=== PATIENT | male | born 1975 | race Caucasian/White ===

== ENCOUNTER 2022-07-25 14:02 | Emergency (ER) | payer OTHER, SELFPAY ==
--- NOTE | 2022-07-25 14:15 | ED.WOUNDLAC ---
HPI - Wound/Laceration General Chief Complaint: Wound/Laceration Stated Complaint: Laceration to right hand Time Seen by Provider: 07/25/22 14:15 Source: patient Mode of arrival: ambulatory Limitations: no limitations History of Present Illness HPI narrative: 47 y/o male presented for c/o laceration to right palm near pinky, after injury today. States he was washing dishes when a plate exploded, cutting the hand. He denies decreased ROM, numbness, tingling or weakness of the finger/hand. Tetanus is up to date. He applied pressure and came in for evaluation immediately. Related Data Home Medications Medication Instructions Recorded Confirmed paroxetine HCl 25 mg 25 mg PO DAILY 07/25/22 07/25/22 tablet,extended release 24 hr Allergies Allergy/AdvReac Type Severity Reaction Status Date / Time No Known Allergies Allergy Mild Verified 07/25/22 14:12 Review of Systems Review of Systems: CONSTITUTIONAL: Denies body aches, fever, chills, or sweats. EYES: Denies visual changes, redness, or discharge. ENT: Denies rhinorrhea, congestion CARDIOVASCULAR: Denies chest pain, palpitations, or edema. RESPIRATORY: Denies cough or dyspnea. GASTROINTESTINAL: Denies abdominal pain, nausea, vomiting, or diarrhea. SKIN: per HPI MUSCULOSKELETAL: Denies back pain, joint pain, or myalgia. NEUROLOGIC: Denies headache, numbness, tingling, or weakness. [facility] Social History Social History Alcohol intake: current Comments At time of signature, I have reviewed and agree with nursing past medical, surgical, social and family history unless otherwise noted. Please see nursing chart for further information. There is no relevant family history pertinent to the presenting complaint Exam Narrative: GENERAL: Well-appearing HEAD: Normocephalic, atraumatic. EYES: conjunctivae clear, and EOMI. ENT: Mucous membranes moist. CHEST: Clear to auscultation. HEART: Regular rate and rhythm. SKIN: Warm, dry. Right hand palmar surface with 2cm linear laceration at 5th digit base. Mild active bleeding. Full ROM, sensation, and strength intact to the 5th digit. No concern for tendon/nerve injury. cap refill <3seconds. NEURO: Alert and oriented x3. Course Course Emergency Course: Patient is aware of diagnosis, understands and agrees to treatment plan. Anticipatory guidance given. Patient agrees to follow-up as directed and is aware of reasons to seek care at the emergency department. Portions of this record may have been created with voice recognition software Level of Care: Express Care Visit Vital Signs Vital signs: Vital Signs Temperature 97.5 F L 07/25/22 14:16 Pulse Rate 77 07/25/22 14:16 Respiratory Rate 16 07/25/22 14:16 Blood Pressure 131/80 07/25/22 14:16 Pulse Oximetry 100 07/25/22 14:16 Oxygen Delivery Room Air 07/25/22 14:16 Temperature 97.5 F L 07/25/22 14:16 Pulse Rate 77 07/25/22 14:16 Respiratory Rate 16 07/25/22 14:16 Blood Pressure 131/80 07/25/22 14:16 Pulse Oximetry 100 07/25/22 14:16 Oxygen Delivery Room Air 07/25/22 14:16 Reviewed Procedures Laceration right hand: Size (cm): 2 Description: linear and clean Depth: simple, single layer Local Anesthetic: lidocaine 1% Amount of anesthesia used (mL): 4 Pre-repair: wound explored and irrigated ====== Skin Level ====== Skin layer closed with: nylon Size (cm): 5-0 Number of sutures: 6 Technique: simple, interrupted ====== Subcutaneous Layer ====== ====== Muscle Layer ====== ====== Tendon Layer ====== Dressing: Verbal consent obtained for laceration repair. Risk and benefits explained and patient voiced understanding. Site cleansed with [employer]. Instilled 4 ml of 1% lidocaine into the wound edges. Area was prepped and draped using sterile technique. A 5-0 pino
[2022-07-25 14:16] VITALS: BP 131/80; PULSE 77; RESP 16; TEMP 36.4; O2SAT 100
== END 2022-07-25 15:10 | disposition home or self-care (01) ==
PROVIDERS: Emergency Provider Nurse Practitioner Family
DX: S61.411A Laceration without foreign body of right hand, initial encounter (principal); W45.8XXA Other foreign body or object entering through skin, initial encounter; Y93.G1 Activity, food preparation and clean up; F41.9 Anxiety disorder, unspecified; F32.A Depression, unspecified
CPT/HCPCS: 12001; 99213; G0463